=== PATIENT | female | born 1990 | race Caucasian/White ===

== ENCOUNTER 2016-09-07 06:23 | Emergency (ER) | payer OTHER ==
[~2016-09-07] VITALS: Ht 157.5 cm; Wt 53.5 kg
[~2016-09-07 06:23] MED LIST: B12INJ IM; BACTRIM DS TAB1 EACH PO; BENTYL 10 MG CA10 M1 PO; BUSPIRONE HCL10 MG PO; CAMRESE 0.15-01 EACH PO; CARAFATE 1 GM TA1 GM PO; CIPRO500 MG PO; CLORAZEPATE D3.75 M1 PO; FIORICET 50-321 EACH PO; FLEXERIL PO; IBUPROFEN 400400 M2 PO; IBUPROFEN 600600 M1 PO; IRON; LAMICTAL XR100 MG PO; LAMICTAL XR50 MG PO; LINZESS145 MCG PO; LORATIDINE 10 M10 M1 PO; NORCO 5-325 TA1 EACH PO; OMEPRAZOLE 20 M20 M1 PO; ONDANSETRON HCL4 M2 PO; PROZAC 20 MG20 M1 PO; PROZAC 20 MG20 MG; PROZAC20 MG PO; RISPERDAL M-TA0.5 MG PO; TRAMADOL 50 MG50 MG PO; TRAZODONE 150150 M1 PO; TUMS200 MG PO; TYLENOL325 MG PO; VYVANSE40 MG PO; WELLBUTRIN XL150 MG PO; XANAX 0.25 MG0.25 MG PO; ZOFRAN ODT4 MG PO; ZOLOFT25 MG PO
[2016-09-07] MEDS ORDERED: NAPROSYN500 MG PO (06:42)
[2016-09-07] MEDS ORDERED: TESSALON PERLE100 MG PO (06:42)
[2016-09-07 06:52] VITALS: BP 135/85
== END 2016-09-07 06:54 | disposition home or self-care (01) ==
LOC: ER 06:23
DX: J06.9 Acute upper respiratory infection, unspecified (principal); F41.9 Anxiety disorder, unspecified; K21.9 Gastro-esophageal reflux disease without esophagitis; E53.8 Deficiency of other specified B group vitamins; Z90.49 Acquired absence of other specified parts of digestive tract; Z88.0 Allergy status to penicillin

== ENCOUNTER 2018-02-12 14:55 | Emergency (ER) | payer OTHER ==
[~2018-02-12] VITALS: Ht 157.5 cm; Wt 63.5 kg
--- NOTE | ~2018-02-12 | EKG ---
[place] [address] [address] [place] [address] ELECTROCARDIOGRAM REPORT Name: CARLITOS ISASSHADI BONILLA Room #: REG [facility] [id number] Admission: 02/12/18 Attend Phys: Discharge: Date of : [birth year] Report #: [id number] THIS REPORT FOR: //name// [facility] ED Test Date: 2018-02-12 Test Time: 16:00:06 Pat Name: JULIETA ISSA Department: Room: Gender: F In Flight Technician: ANTONELLA : 1990 Requested By: Alexandria Tafoya Order Number: [id number] MD: Cam Perez Measurements Intervals [place] Rate: 69 P: 62 NE: 121 QRS: 56 QRSD: 86 T: 29 QT: 387 QTc: 415 Interpretive Statements Sinus rhythm Normal tracing Baseline wander in lead(s) V6 Compared to ECG 09/03/2015 20:29:33 No significant changes Electronically Signed On 02-12-2018 16:46:40 CDT by Cam Perez [email or web address] <ELECTRONICALLY SIGNED> By: Cam Perez MD, [facility] 02/12/18 1646 1600 99 Cam Perez MD, FACC /EPI
[~2018-02-12 14:55] MED LIST changes: +BUTALB-APAP-CA1 EACH PO; +CLONAZEPAM 0.50.5 M1 PO; +KEFLEX500 M1 PO; +NAPROSYN500 MG PO; +PEPCID20 MG PO; +TESSALON PERLE100 MG PO
[2018-02-12 15:33] LABS: URINE BILIRUBIN NEGATIVE (Negative); URINE BLOOD TRACE (Negative); URINE CLARITY CLEAR; URINE COLOR YELLOW; URINE GLUCOSE-RANDOM* NEGATIVE (Negative); URINE KETONES TRACE (Negative); URINE LEUKOCYTES-REFLEX NEGATIVE (Negative); URINE NITRITE-REFLEX NEGATIVE (Negative); URINE PROTEIN (DIPSTICK) NEGATIVE (Negative)
[2018-02-12 15:40] LABS: ABSOLUTE NEUTROPHILS 2.9 thou/uL (1.4-8.2); BASOPHILS 0.9 % (0.0-2.0); EOSINOPHILS 3.9 % (0.0-3.0); HEMATOCRIT 43.1 % (37.0-47.0); HEMOGLOBIN 14.9 gm/dL (12.0-15.0); LYMPHOCYTES 29.8 % (24.0-44.0); MCH 30.5 pg (26.0-34.0); MCHC 34.6 g/dL (28.0-37.0); MCV 88.1 fL (80.0-100.0); MONOCYTES 8.6 % (1.0-8.0); PLATELET COUNT 229 thou/uL (150-400); POLYS 56.8 % (36.0-66.0); RBC 4.89 mil/uL (4.20-5.00); RDW 13.6 % (10.5-14.5); WBC 5.1 thou/uL (4.0-11.0)
[2018-02-12 15:49] LABS: CALCIUM 9.1 mg/dL (8.5-10.1); CREATININE 1.1 mg/dL (0.6-1.0); POTASSIUM 3.8 mmol/L (3.5-5.1)
[2018-02-12 15:56] LABS: ALBUMIN 3.6 g/dL (3.4-5.0); TOTAL BILIRUBIN 0.4 mg/dL (<0.1-1.0)
[2018-02-12] MEDS ORDERED: ONDANSETRON HCL4 M2 PO (18:16)
[2018-02-12] MEDS ORDERED: MOBIC7.5 MG PO (18:16)
[2018-02-12 18:35] VITALS: BP 120/75
[2018-02-12 20:08] LABS: LARGE PLATELETS SEVERAL
== END 2018-02-12 18:36 | disposition home or self-care (01) ==
LOC: ER 14:55
PROVIDERS: Physician Assistant
DX: R10.31 Right lower quadrant pain (principal); R11.2 Nausea with vomiting, unspecified; K21.9 Gastro-esophageal reflux disease without esophagitis; E53.8 Deficiency of other specified B group vitamins; Z87.440 Personal history of urinary (tract) infections; Z90.49 Acquired absence of other specified parts of digestive tract; Z88.0 Allergy status to penicillin